=== PATIENT | female | born 1995 | race Hispanic/Latino ===

== ENCOUNTER 2019-04-06 03:52 | Observation (INO) | payer BC ==
[~2019-04-06] VITALS: Ht 160 cm; Wt 73.0 kg
[2019-04-06] VITALS (21 sets, daily range): BP systolic 107–124; BP diastolic 51–77
[2019-04-06] MEDS ORDERED: SODIUM CHLORIDE 0.9% 1000ML 1,000 ML IV ONE ×4 (04:41→07:31)
[2019-04-06 04:54] LABS: CREATININE 0.7 mg/dL (0.5-1.5); POTASSIUM 3.9 mmol/L (3.5-5.1)
[2019-04-06 05:00] LABS: BASOPHILS % (AUTO) 0.3 % (0.0-5.0); LYMPHOCYTES % (AUTO) 16.5 % (21.0-51.0); MEAN CORPUSCULAR HGB CONC 32.8 g/dL (32.0-36.0); MEAN CORPUSCULAR VOLUME 85.5 fL (80-100); MONOCYTES % (AUTO) 4.4 % (3.0-13.0); NEUTROPHILS % (AUTO) 74.8 % (40.0-77.0); PLATELET COUNT (AUTO) 268 K/uL (130-400); RED BLOOD CELL COUNT(AUTO) 3.39 MIL/uL (4.00-5.50); RED CELL DISTRIBUTION WIDTH 13.9 % (11.0-15.5); WHITE BLOOD COUNT (AUTO) 13.9 K/uL (4.8-10.8)
[2019-04-06 05:20] LABS: BILIRUBIN,TOTAL 0.4 mg/dL (0.2-1.0); TOTAL PROTEIN, SERUM 6.1 g/dL (6.0-8.3)
[2019-04-06] MEDS ORDERED: ONDANSETRON HCL 4 MG/2 ML VIAL ONE ×2 (05:59→10:47)
[2019-04-06 06:18] LABS: BASOPHILS % (AUTO) 0.3 % (0.0-5.0); EOSINOPHILS % (AUTO) 2.8 % (0.0-8.0); HEMATOCRIT 23.4 % (36-48); LYMPHOCYTES % (AUTO) 11.7 % (21.0-51.0); MEAN CORPUSCULAR HEMOGLOBIN 27.9 pg (27.0-33.0); MEAN CORPUSCULAR HGB CONC 32.8 g/dL (32.0-36.0); MEAN CORPUSCULAR VOLUME 85.1 fL (80-100); MONOCYTES % (AUTO) 4.6 % (3.0-13.0); NEUTROPHILS % (AUTO) 80.6 % (40.0-77.0); PLATELET COUNT (AUTO) 241 K/uL (130-400); RED BLOOD CELL COUNT(AUTO) 2.75 MIL/uL (4.00-5.50); RED CELL DISTRIBUTION WIDTH 14.1 % (11.0-15.5); WHITE BLOOD COUNT (AUTO) 12.5 K/uL (4.8-10.8)
[2019-04-06] MEDS ORDERED: FAMOTIDINE/PF 20 MG/2 ML VIAL IV ONE (07:33)
[2019-04-06] MEDS ORDERED: SODIUM CHLORIDE 0.9% 1000ML 1,000 ML IV SCH (10:00)
[2019-04-06] MEDS ORDERED: LIDOCAINE PF 2% 5ML ABBOJECT ONE (10:46)
[2019-04-06] MEDS ORDERED: PROPOFOL 10 MG/ML 20ML VIAL IV ONE (10:46)
[2019-04-06] MEDS ORDERED: SUCCINYLCHOLINE 200MG/10ML SYR ONE (10:46)
[2019-04-06] MEDS ORDERED: MIDAZOLAM HCL 1 MG/ML 2ML VIAL ONE (10:46)
[2019-04-06] MEDS ORDERED: FENTANYL CITRATE PF 50 MCG/1 ML 2ML VIAL ONE (10:46)
[2019-04-06] MEDS ORDERED: EPHEDRINE SULFATE 50 MG/ML AMPULE ONE (11:05)
[2019-04-06] MEDS ORDERED: ROCURONIUM 10MG/1ML SYR 10 MG/ML ML ONE (11:07)
[2019-04-06] MEDS ORDERED: OXYTOCIN 10 USP UNITS/ML ONE (11:12)
[2019-04-06] MEDS ORDERED: MISOPROSTOL 200 MCG TABLET ONE (11:12)
--- NOTE | 2019-04-06 12:50 | NUR ---
ASSESSMENT: RECEIVED FROM PACU POST OP D&C VIA BED TO 116. MADE COMFORTABLE. CALL ALEMAN AT HER SIDE. EXPLAINED POC AND UNDERSTANDING VERBALIZED. AMANDA PAD WITH SC VAG BLEEDING. DENIES PAIN.
[2019-04-06] MEDS ORDERED: IBUPROFEN 600 MG TABLET PO PRN (13:00)
[2019-04-06] MEDS ORDERED: ACETAMINOPHEN-CODEINE 300/30MG TAB PO PRN (13:00)
[2019-04-06] MEDS ORDERED: SIMETHICONE 80 MG TAB.CHEW PO PRN (13:00)
[2019-04-06] MEDS ORDERED: BISACODYL 10 MG SUPP.RECT RC PRN (13:00)
[2019-04-06] MEDS ORDERED: MEPERIDINE-PF 75 MG/ML SYG IM PRN (13:00)
[2019-04-06] MEDS ORDERED: DOCUSATE SODIUM 100 MG CAP PO PRN (13:00)
[2019-04-06] MEDS ORDERED: PROMETHAZINE HCL 25 MG/ML 1ML AMPULE IM PRN ×2 (13:00)
[2019-04-06] MEDS ORDERED: DEXTROSE 5%-LACTATED RINGERS 1,000 ML IV SCH (13:00)
[2019-04-06] MEDS ORDERED: DOXYCYCLINE HYCLATE 100 MG TABLET PO SCH (13:00)
--- NOTE | 2019-04-06 13:10 | NUR ---
BLOOD TRANSFUSION :EXPLAINED PROCEDURE FOR BLOOD TRANSFUSION, #2 UNIT OF BLOOD. ID VERIFIED AT BEDSIDE WITH Lazara BRANDON RN. PRBC'S INITIATED AND INF WELL TO LAC.
--- NOTE | 2019-04-06 14:30 | NUR ---
ELIMINATION. aMB TO BR AND VOIDED LG AMTS OF URINE. INSTRUCTED ON AMANDA CARE AND RETURNED DEMONSTRATION.
--- NOTE | 2019-04-06 14:36 | NUR ---
NUTRITION: MER JELLO AND JUICE.
--- NOTE | 2019-04-06 14:40 | NUR ---
TRANSFUSION> PRBC'S # 2 UNIT COMPLETED. LINE FLUSHED WITH NS. MER WELL.
--- NOTE | 2019-04-06 17:50 | NUR ---
ACTIVITY: AMB IN HALLWAY.
[2019-04-06 17:55] LABS: HEMATOCRIT 28.3 % (36-48)
--- NOTE | 2019-04-06 18:05 | NUR ---
HYGEINE; TAKING SHOWER.
--- NOTE | 2019-04-06 18:20 | NUR ---
LABS: H&H RESULTS OF 9.4 AND 28[address] DEL ANGEL, ORDERS TO DISCHARGE HOME. PT AND FAMILY MADE AWARE.
--- NOTE | 2019-04-06 18:39 | NUR ---
DISCHARGE: DISCHARGE INSTRUCTIONS GIVEN TO PT AND HER MOM ON SELF CARE POST MISCARRIAGE, D&C, BLOOD LOSS, ANEMIA WITH BLOOD TRANSFUSION. DIET TO FOLLOW. TO CALL DR DEL ANGEL'S OFFICE SUNDAY AND MAKE FOLLOW UP APPT FOR SUNDAY. MAY TAKE MOTRIN ( OVER THE COUNTER) PRN FOR PAIN. UNDERSTANDING VERBALIZED AND COPIES OF ALL INSTRUCTIONS GIVEN TO PT.
--- NOTE | 2019-04-06 19:00 | NUR ---
DISCHARGE: DISCHARGED HOME VIA W/C TO PRIVATE CAR WITH FAMILY.
[2019-04-06] MEDS ORDERED: FAMOTIDINE/PF 20 MG/2 ML VIAL IV SCH (21:00)
== END 2019-04-06 19:00 | disposition home or self-care (01) ==
LOC: EDH 03:52 → EDHIP 07:05 → WSH 07:05 → UNDOADMOB 07:05 → WSH 11:27 → EDHIP 11:27
PROVIDERS: ADMIT Internal Medicine; ATTEND Internal Medicine
DX: O03.4 Incomplete spontaneous abortion without complication (principal); D62 Acute posthemorrhagic anemia; Z3A.10 10 weeks gestation of pregnancy; Z82.49 Family history of ischemic heart disease and other diseases of the circulatory system; Z79.899 Other long term (current) drug therapy
CPT/HCPCS: 36415; 36430; 59812; 76801; 80053; 84702; 85014; 85018 ×2; 85025 ×2; 86850; 86900; 86901; 86922 ×2; 88305; 99291; A4344; A4606; A4649; A7002; G0378 ×11; J0330; J2001; J2250; J2405 ×2; J2590; J2704; J3010; J3490 ×2; J7030 ×4; P9016 ×2

== ENCOUNTER → 2020-06-03 | Outpatient (CLI) | payer BC, MEDICAID ==
[~2020-06-03] MED LIST: ENOX40DI8 SQ; PREN-196 PO
== END | disposition home or self-care (01) ==
LOC: DAH 10:00 → EDSTATUS 06-11 16:18
PROVIDERS: ATTEND Obstetrics & Gynecology
DX: Z11.59 Encounter for screening for other viral diseases (principal)
CPT/HCPCS: U0003

== ENCOUNTER 2020-06-14 18:14 | Inpatient (IN) | payer BC, MEDICAID ==
[~2020-06-14] VITALS: Ht 160 cm; Wt 73.9 kg
[2020-06-14] MEDS ORDERED: MISOPROSTOL 25 MCG TABLET VG SCH (18:45)
[2020-06-14] MEDS ORDERED: BUTORPHANOL TARTRATE 2 MG/ML IVP PRN (18:45)
[2020-06-14] MEDS ORDERED: LACTATED RINGERS 500 ML 500 ML IV PRN (18:45)
[2020-06-14] MEDS ORDERED: EPHEDRINE SULFATE 50 MG/ML AMPULE IVP PRN (18:45)
[2020-06-14] MEDS ORDERED: NALOXONE HCL 0.4 MG/1 ML ML IV PRN (18:45)
[2020-06-14] MEDS ORDERED: ROPIVACAINE 0.2% 100ML VIAL 100 ML EP SCH (18:45)
[2020-06-14] MEDS ORDERED: OXYTOCIN-LR 20 UNITS/1000 ML 1,000 ML IV SCH (19:00)
[2020-06-14 19:09] LABS: APPEARANCE,URINE Cloudy (CLEAR); BILIRUBIN,URINE Negative (NEGATIVE); COLOR,URINE Yellow (YELLOW); GLUCOSE, URINE (UA) Negative (NEGATIVE); KETONES,URINE >=80 mg/dL (NEGATIVE); LEUKOCYTE ESTERASE ,URINE Trace (NEGATIVE); NITRATE,URINE Negative (NEGATIVE); OCCULT BLOOD,URINE Negative (NEGATIVE); PH,URINE 6.5 (5.0-8.0); PROTEIN,URINE Negative (NEGATIVE); UROBILINOGEN,URINE 0.2 mg/dL (0.2-1.0)
[2020-06-14 19:09] LABS: HEMATOCRIT 33.2 % (36-48); MEAN CORPUSCULAR HEMOGLOBIN 28.9 pg (27.0-33.0); MEAN CORPUSCULAR HGB CONC 33.7 g/dL (32.0-36.0); MEAN CORPUSCULAR VOLUME 85.6 fL (79-99); RED BLOOD CELL COUNT(AUTO) 3.88 MIL/uL (4.00-5.50); RED CELL DISTRIBUTION WIDTH 13.7 % (11.0-15.5); WHITE BLOOD COUNT (AUTO) 13.4 K/uL (4.8-10.8)
[2020-06-14 19:18] LABS: BACTERIA,URINE Few /HPF (None Seen); MUCUS,URINE Rare LPF (None Seen); RBC,URINE 0-1 /HPF (0-1); SQUAMOUS EPITHELIAL CELL,UR Moderate /HPF (0-2)
[2020-06-14 19:59] VITALS: BP 116/65
[2020-06-14] MEDS: MISOPROSTOL 100 MCG TABLET VG SCH ×2 (20:24→23:00)
[2020-06-14 21:26] LABS: AMPHET/METH SCREEN,URINE NEGATIVE (NEGATIVE); BARBITURATE SCREEN, URINE NEGATIVE (NEGATIVE); BENZODIAZEPINES SCREEN,URINE NEGATIVE (NEGATIVE); CANNABINOID SCREEN,URINE NEGATIVE (NEGATIVE); COCAINE SCREEN,URINE NEGATIVE (NEGATIVE); OPIATE SCREEN,URINE NEGATIVE (NEGATIVE); PHENCYCLIDINE SCREEN,URINE NEGATIVE (NEGATIVE)
[2020-06-14] MEDS ORDERED: ENOX40DI8 SQ (21:59)
[2020-06-14] MEDS ORDERED: PREN-196 PO (21:59)
[2020-06-15] VITALS (10 sets, daily range): BP systolic 98–120; BP diastolic 56–80
[2020-06-15] MEDS: LACTATED RINGERS 1000ML 1,000 ML IV PRN ×2 (00:54→05:03)
[2020-06-15] MEDS: OXYTOCIN-LR 20 UNITS/1000 ML 1,000 ML IV SCH ×2 (05:04→09:50)
[2020-06-15] MEDS ORDERED: LIDOCAINE HCL 1% 20 ML VIAL ONE (07:39)
[2020-06-15] MEDS ORDERED: METHYLERGONOVINE MALEATE 0.2 MG/1 ML ML ONE (07:45)
--- NOTE | 2020-06-15 08:05 | NUR ---
PATIENT AND SIGNIFICANT OTHER ORIENTED TO ROOM. FUNDUS FIRM, BLEEDING IS SCANT. SITZ BATH AND LANOLIN EXPLAINED TO PATIENT. ASSISTED PATIENT IN LATCHING BABY TO LEFT BREAST.
[2020-06-15] MEDS ORDERED: WITCH HAZEL 1 PAD TP PRN (09:45)
[2020-06-15] MEDS ORDERED: LANOLIN 30GM OINTMENT TP PRN (09:45)
[2020-06-15] MEDS ORDERED: ACETAMINOPHEN-CODEINE 300/30MG TAB PO PRN (09:45)
[2020-06-15] MEDS ORDERED: ACETAMINOPHEN 325 MG TAB PO PRN (09:45)
[2020-06-15] MEDS ORDERED: BENZOCAINE/LANOLIN/ALOE VERA 60 ML AEROSOL TP PRN (09:45)
[2020-06-15] MEDS: IBUPROFEN 600 MG TABLET PO PRN ×3 (09:51→22:02)
--- NOTE | 2020-06-15 09:55 | NUR ---
PERICARE GIVEN AT THIS TIME. FUNDUS FIRM, BLEEDING IS SMALL. ICE PACK TO PERINEUM REMOVED. DERMAPLAST SPRAY AND TUCKS PADS EXPLAINED AND UTILIZED. PATIENT VOICED UNDERSTANDING OF DESIRED EFFECTS AND INSTRUCTIONS. PATIENT ABLE TO LIFT HIPS WITHOUT DIFFICULTY, NO CLOTS EXPELLED. QBL 2 HOUR PP IS 81G; TOTAL QBL IS 194
--- NOTE | 2020-06-15 10:35 | NUR ---
PATIENT ASSISTED TO RESTROOM. NO C/O DIZZINESS REPORTED. PATIENT ABLE TO VOID 800ML. PERICARE GIVEN. PATIENT AMBULATED BACK TO BED WITHOUT DIFFICULTY.
[2020-06-15] MEDS: DOCUSATE SODIUM 100 MG CAP PO SCH (20:53)
[2020-06-16 03:25] VITALS: BP 91/57
[2020-06-16] MEDS: IBUPROFEN 600 MG TABLET PO PRN (06:43)
[2020-06-16 07:36] VITALS: BP 97/58
[2020-06-16] MEDS: DOCUSATE SODIUM 100 MG CAP PO SCH (08:49)
[2020-06-16 10:14] LABS: HEPATITIS Bs ANTIGEN SCREEN P Negative (Negative)
--- NOTE | 2020-06-16 12:50 | NUR ---
PATIENT LEFT UNIT VIA WHEELCHAIR WITH BABY IN ARMS. PERSONAL VEHICLE USED FOR TRANSPORTATION ACCOMPANIED BY SIGNIFICANT OTHER. BABY SECURE IN CARSEAT. NO COMPLAINTS OR CONCERNS ADDRESSED FROM PATIENT ON DISCHARGE.
== END 2020-06-16 12:50 | disposition home or self-care (01) | DRG 806 ==
LOC: LDH 18:14 → WSH 06-15 08:09
PROVIDERS: ADMIT Obstetrics & Gynecology; ATTEND Obstetrics & Gynecology
PROC: 10E0XZZ Delivery of Products of Conception, External Approach (ICD-10-PCS; principal; 2020-06-15)
PROC: 0KQM0ZZ Repair Perineum Muscle, Open Approach (ICD-10-PCS; 2020-06-15)
PROC: 3E033VJ Introduction of Other Hormone into Peripheral Vein, Percutaneous Approach (ICD-10-PCS; 2020-06-15)
PROC: 3E0P7VZ Introduction of Hormone into Female Reproductive, Via Natural or Artificial Opening (ICD-10-PCS; 2020-06-15)
DX: O62.2 Other uterine inertia (principal); O99.12 Other diseases of the blood and blood-forming organs and certain disorders involving the immune mechanism complicating childbirth; Z37.0 Single live birth; D68.61 Antiphospholipid syndrome; O70.1 Second degree perineal laceration during delivery; Z3A.37 37 weeks gestation of pregnancy; N96 Recurrent pregnancy loss
CPT/HCPCS: 36415; 80305; 81001; 85027; 86592; 86850; 86900; 86901; 87340; A4351; A4606; G0378; J0595; J2210; J2590; J7120

== ENCOUNTER 2020-10-06 02:30 | Emergency (ER) | payer BC, MEDICAID ==
[2020-10-06] MEDS ORDERED: SODIUM CHLORIDE 0.9% 1000ML 1,000 ML IV ONE (02:31)
[2020-10-06] MEDS ORDERED: ONDANSETRON HCL 4 MG/2 ML VIAL ONE (02:59)
[2020-10-06] MEDS ORDERED: MORPHINE SULFATE 4 MG/1ML SYG ONE ×2 (03:00→03:45)
[2020-10-06 03:42] LABS: BASOPHILS % (AUTO) 0.5 % (0.0-5.0); EOSINOPHILS % (AUTO) 4.2 % (0.0-8.0); HEMATOCRIT 38.9 % (36-48); LYMPHOCYTES % (AUTO) 25.7 % (21.0-51.0); MEAN CORPUSCULAR HEMOGLOBIN 27.7 pg (27.0-33.0); MEAN CORPUSCULAR HGB CONC 32.9 g/dL (32.0-36.0); MEAN CORPUSCULAR VOLUME 84.2 fL (79-99); MONOCYTES % (AUTO) 5.8 % (3.0-13.0); NEUTROPHILS % (AUTO) 63.5 % (40.0-77.0); PLATELET COUNT (AUTO) 308 K/uL (130-400); RED BLOOD CELL COUNT(AUTO) 4.62 MIL/uL (4.00-5.50); RED CELL DISTRIBUTION WIDTH 13.5 % (11.0-15.5); WHITE BLOOD COUNT (AUTO) 10.8 K/uL (4.8-10.8)
[2020-10-06 03:44] LABS: APPEARANCE,URINE Turbid (CLEAR); BILIRUBIN,URINE Negative (NEGATIVE); COLOR,URINE Yellow (YELLOW); GLUCOSE, URINE (UA) Negative (NEGATIVE); KETONES,URINE 15 mg/dL (NEGATIVE); LEUKOCYTE ESTERASE ,URINE Trace (NEGATIVE); NITRATE,URINE Negative (NEGATIVE); OCCULT BLOOD,URINE Moderate (NEGATIVE); PH,URINE 6.5 (5.0-8.0); PROTEIN,URINE Trace mg/dL (NEGATIVE)
[2020-10-06 03:47] LABS: HCG,QUAL RESULT NEGATIVE (NEGATIVE)
[2020-10-06 03:50] LABS: CREATININE 0.8 mg/dL (0.5-1.5); POTASSIUM 3.3 mmol/L (3.5-5.1)
[2020-10-06 03:51] LABS: AMPHET/METH SCREEN,URINE NEGATIVE (NEGATIVE); BARBITURATE SCREEN, URINE NEGATIVE (NEGATIVE); BENZODIAZEPINES SCREEN,URINE NEGATIVE (NEGATIVE); CANNABINOID SCREEN,URINE POSITIVE (NEGATIVE); COCAINE SCREEN,URINE NEGATIVE (NEGATIVE); OPIATE SCREEN,URINE NEGATIVE (NEGATIVE); PHENCYCLIDINE SCREEN,URINE NEGATIVE (NEGATIVE)
[2020-10-06 03:54] LABS: BILIRUBIN,TOTAL 0.5 mg/dL (0.2-1.0); TOTAL PROTEIN, SERUM 7.7 g/dL (6.0-8.3)
[2020-10-06 03:55] LABS: AMORPHOUS SEDIMENT,UR Many /LPF (None Seen); BACTERIA,URINE Few /HPF (None Seen); MUCUS,URINE Moderate LPF (None Seen); SQUAMOUS EPITHELIAL CELL,UR Few /HPF (0-2); WBC,URINE 0-1 /HPF (0-1)
[2020-10-06 03:56] LABS: INR 0.96 (0.85-1.15); PROTHROMBIN TIME 10.4 SEC (9.6-11.6)
[2020-10-06] MEDS ORDERED: IOHEXOL-350 75 ML VIAL IV ONE (04:52)
== END 2020-10-06 07:27 | disposition home or self-care (01) ==
LOC: EDH 02:30
DX: R10.13 Epigastric pain (principal)
CPT/HCPCS: 36415; 74177; 80053; 80305; 81001; 81025; 83605; 83690; 85025; 85610; 85730; 96361; 96374; 96375; 99285; J2270 ×2; J2405; J7030; Q9967

== ENCOUNTER 2020-10-10 19:56 | Emergency (ER) | payer BC, MEDICAID ==
[2020-10-10] MEDS ORDERED: DICYCLOMINE HCL 20 MG TAB ONE (20:17)
[2020-10-10] MEDS ORDERED: SODIUM CHLORIDE 0.9% 50 ML IV ONE (20:17)
[2020-10-10] MEDS ORDERED: SODIUM CHLORIDE 0.9% 1000ML 1,000 ML IV ONE (20:17)
[2020-10-10 20:25] LABS: BASOPHILS % (AUTO) 0.4 % (0.0-5.0); HEMATOCRIT 39.2 % (36-48); LYMPHOCYTES % (AUTO) 22.1 % (21.0-51.0); MEAN CORPUSCULAR HGB CONC 32.4 g/dL (32.0-36.0); MEAN CORPUSCULAR VOLUME 86.3 fL (79-99); MONOCYTES % (AUTO) 5.4 % (3.0-13.0); NEUTROPHILS % (AUTO) 68.9 % (40.0-77.0); PLATELET COUNT (AUTO) 360 K/uL (130-400); RED BLOOD CELL COUNT(AUTO) 4.54 MIL/uL (4.00-5.50); RED CELL DISTRIBUTION WIDTH 13.2 % (11.0-15.5); WHITE BLOOD COUNT (AUTO) 11.1 K/uL (4.8-10.8)
[2020-10-10 20:26] LABS: APPEARANCE,URINE Cloudy (CLEAR); BILIRUBIN,URINE Negative (NEGATIVE); COLOR,URINE Yellow (YELLOW); GLUCOSE, URINE (UA) Negative (NEGATIVE); KETONES,URINE 15 mg/dL (NEGATIVE); LEUKOCYTE ESTERASE ,URINE Small (NEGATIVE); NITRATE,URINE Negative (NEGATIVE); OCCULT BLOOD,URINE Negative (NEGATIVE); PROTEIN,URINE Negative (NEGATIVE)
[2020-10-10 20:29] LABS: HCG,QUAL RESULT NEGATIVE (NEGATIVE)
[2020-10-10 20:33] LABS: BACTERIA,URINE Rare /HPF (None Seen); RBC,URINE 0-1 /HPF (0-1); SQUAMOUS EPITHELIAL CELL,UR Few /HPF (0-2)
[2020-10-10 20:38] LABS: CREATININE 0.9 mg/dL (0.5-1.5); POTASSIUM 3.3 mmol/L (3.5-5.1)
[2020-10-10 20:43] LABS: BILIRUBIN,TOTAL 0.6 mg/dL (0.2-1.0); TOTAL PROTEIN, SERUM 8.5 g/dL (6.0-8.3)
== END 2020-10-10 21:32 | disposition home or self-care (01) ==
LOC: EDH 19:56
DX: K29.70 Gastritis, unspecified, without bleeding (principal); Z72.0 Tobacco use
CPT/HCPCS: 36415; 71045; 80053; 81001; 81025; 83690; 84484; 85025; 96365; 96372; 99284; J7030

== ENCOUNTER 2021-08-11 11:21 | Emergency (ER) | payer BC, MEDICAID ==
[~2021-08-11] VITALS: Ht 157.5 cm; Wt 64.4 kg
[2021-08-11 11:23] VITALS: BP 123/65
[2021-08-11] MEDS ORDERED: LIDOCAINE HCL 1% 20 ML VIAL ONE (12:21)
[2021-08-11] MEDS ORDERED: CEPH500B PO (12:46)
[2021-08-11] MEDS ORDERED: LIDOCAINE HCL MPF 1% 5ML VIAL IV SCH (13:30)
[2021-08-11] MEDS ORDERED: ACETAMINOPHEN 500 MG TABLET PO ONE (13:30)
[2021-08-11] MEDS ORDERED: TETANUS/DIPHTHERIA TOXOID [ADULT] 0.5 ML VIAL IM ONE (13:45)
== END 2021-08-11 13:30 | disposition home or self-care (01) ==
LOC: EDH 11:21
DX: S61.512A Laceration without foreign body of left wrist, initial encounter (principal); Z79.01 Long term (current) use of anticoagulants; W26.8XXA Contact with other sharp object(s), not elsewhere classified, initial encounter; Y93.9 Activity, unspecified; Y92.89 Other specified places as the place of occurrence of the external cause; Y99.8 Other external cause status
CPT/HCPCS: 12001; 73110; 90471; 90714

== ENCOUNTER 2021-08-19 13:50 | Emergency (ER) | payer BC, MEDICAID ==
[~2021-08-19] VITALS: Ht 157.5 cm; Wt 64.9 kg
[~2021-08-19 13:50] MED LIST changes: +CEPH500B PO
[2021-08-19 13:52] VITALS: BP 111/61
== END 2021-08-19 14:42 | disposition home or self-care (01) ==
LOC: EDH 13:50
DX: S61.511D Laceration without foreign body of right wrist, subsequent encounter (principal); Z79.01 Long term (current) use of anticoagulants; X58.XXXD Exposure to other specified factors, subsequent encounter
CPT/HCPCS: 99281